=== PATIENT | female | born 1960 | race Two or more races ===

== ENCOUNTER → 2019-09-05 | Outpatient (CLI) | payer MEDICAID | END | disposition home or self-care (01) | LOC: LAB 11:29 | PROVIDERS: ATTEND Ophthalmology | DX: Z01.818 Encounter for other preprocedural examination (principal); Z11.59 Encounter for screening for other viral diseases | CPT/HCPCS: C9803; U0003 ==

== ENCOUNTER → 2019-09-19 | Outpatient (CLI) | payer MEDICAID ==
[~2019-09-19] MED LIST: AMLO10TA80 PO; METF-816 PO; SIMV10TA97 PO
== END | disposition home or self-care (01) ==
LOC: LAB 08:53
PROVIDERS: ATTEND Ophthalmology
DX: Z01.818 Encounter for other preprocedural examination (principal); Z11.59 Encounter for screening for other viral diseases
CPT/HCPCS: C9803; U0003

== ENCOUNTER 2019-09-23 06:13 | Day surgery (SDC) | payer MEDICAID ==
[~2019-09-23] VITALS: Ht 157.5 cm; Wt 68.0 kg
[~2019-09-23 06:13] MED LIST changes: +CYCLOPENTOLATE HCL 1% OPHTH DROPS 2ML LEFTEYE ONE; +PHENYLEPHRINE HCL 10% OPHTH DROPS 5ML LEFTEYE ONE; +TROPICAMIDE 1% OPHTH DROPS 15ML LEFTEYE ONE
[2019-09-23] MEDS ORDERED: SODIUM CHLORIDE 0.9% 1,000 ML IV SCH (06:30)
[2019-09-23] MEDS ORDERED: HYALURONATE SODIUM 10 MG/ML 0.55ML SYRINGE IO ONE (06:58)
[2019-09-23] MEDS ORDERED: LACTATED RINGERS 1,000 ML IV SCH (07:00)
[2019-09-23] MEDS ORDERED: BALANCED SALT IRRIG SOLN COMB1 500ML OP ONE (07:15)
[2019-09-23] MEDS ORDERED: MIDAZOLAM HCL 2 MG/2 ML VIAL ONE (07:24)
[2019-09-23] MEDS ORDERED: FENTANYL CITRATE/PF 50MCG/ML 2ML VIAL ONE (07:24)
[2019-09-23] MEDS ORDERED: BALANCED SALT IRRIG SOLN COMB2 500ML OP ONE (08:36)
[2019-09-23] MEDS ORDERED: ACETAZOLAMIDE SODIUM 500MG/VIAL IV ONE (08:53)
[2019-09-23] MEDS ORDERED: LIDOCAINE HCL/PF 2% 20 MG/ML 10ML VIAL ONE (10:03)
[2019-09-23] MEDS ORDERED: BALANCED SALT IRRIG SOLN 15ML ONE (10:03)
[2019-09-23] MEDS ORDERED: CIPROFLOXACIN 0.3% OPHTH SOLN 2.5ML ONE (10:03)
[2019-09-23] MEDS ORDERED: GENTAMICIN SULF 40MG/ML 2ML VIAL ONE (10:03)
[2019-09-23] MEDS ORDERED: PREDNISOLONE ACETATE 1% OPHTH DROPS 5ML ONE (10:03)
[2019-09-23] MEDS ORDERED: PHENYLEPHRINE HCL 10% OPHTH DROPS 5ML ONE (10:03)
[2019-09-23] MEDS ORDERED: ACETYLCHOLINE CHLORIDE INTRAOCULAR SOLUTION 1:100 ELECTROLYTE DILUENT IO ONE (10:03)
[2019-09-23] MEDS ORDERED: TETRACAINE 0.5% OPHTH DROPS 4ML ONE (10:03)
[2019-09-23] MEDS ORDERED: BUPIVACAINE HCL/PF 0.75% (7.5MG/ML) 10ML ONE (10:03)
[2019-09-23] MEDS ORDERED: TROPICAMIDE 1% OPHTH DROPS 15ML ONE (10:03)
== END 2019-09-23 10:45 | disposition home or self-care (01) ==
LOC: OR 06:13
PROVIDERS: ATTEND Ophthalmology
DX: E11.36 Type 2 diabetes mellitus with diabetic cataract (principal); H25.89 Other age-related cataract; I10 Essential (primary) hypertension; J45.909 Unspecified asthma, uncomplicated; E78.00 Pure hypercholesterolemia, unspecified; Z79.899 Other long term (current) drug therapy; Z79.84 Long term (current) use of oral hypoglycemic drugs; Z98.890 Other specified postprocedural states
CPT/HCPCS: 66984; 67005; 82962; 93005; J1120; J1580; J2250; J3010; J3490; V2632